=== PATIENT | male | born 1955 | race Caucasian/White ===

== ENCOUNTER 2023-02-27 08:30 | Day surgery (SDC) | payer OTHER ==
[~2023-02-27] VITALS: Ht 165.1 cm; Wt 72.6 kg
[2023-02-27] MEDS ORDERED: LIDOCAINE 2% 100 MG/5 ML UJET TP ONE (09:41)
[2023-02-27] MEDS ORDERED: fentaNYL citrate 0.05 MG/ML VIAL ONE (09:41)
[2023-02-27] MEDS ORDERED: fentaNYL citrate 0.05 MG/ML VIAL IVP ONE (10:35)
== END 2023-02-27 11:16 | disposition home or self-care (01) ==
LOC: MMU 08:30 → MDS 08:30
PROVIDERS: ATTEND Internal Medicine Gastroenterology
DX: Z12.11 Encounter for screening for malignant neoplasm of colon (principal); K63.5 Polyp of colon; K64.9 Unspecified hemorrhoids; I10 Essential (primary) hypertension; E78.00 Pure hypercholesterolemia, unspecified; Z20.822 Contact with and (suspected) exposure to COVID-19; Z79.899 Other long term (current) drug therapy
CPT/HCPCS: 45385; 87426; J3010